=== PATIENT | female | born 1995 | race Caucasian/White ===

== ENCOUNTER 2016-08-20 18:47 | Emergency (ER) | payer BC, OTHER ==
[~2016-08-20] VITALS: Ht 165.1 cm; Wt 68.0 kg
[2016-08-20] MEDS ORDERED: ROBAXIN 750 MG750 M1 PO (20:58)
[2016-08-20] MEDS ORDERED: IBUPROFEN 800800 M1 PO (20:58)
[2016-08-20] MEDS ORDERED: ULTRAM 50MG TAB50 MG PO (20:58)
[2016-08-20 21:32] VITALS: BP 110/70
== END 2016-08-20 20:58 | disposition home or self-care (01) ==
LOC: ER 18:47
DX: S16.1XXA Strain of muscle, fascia and tendon at neck level, initial encounter (principal); S29.012A Strain of muscle and tendon of back wall of thorax, initial encounter; V43.52XA Car driver injured in collision with other type car in traffic accident, initial encounter; Y93.I9 Activity, other involving external motion; Y92.89 Other specified places as the place of occurrence of the external cause; Y99.8 Other external cause status